=== PATIENT | female | born 1950 | race African-American/Black ===

== ENCOUNTER 2017-10-23 03:28 | Inpatient (IN) | payer OTHER, MEDICAID ==
[~2017-10-23] VITALS: Ht 160 cm; Wt 61.7 kg
[2017-10-23] VITALS (12 sets, daily range): BP systolic 103–133; BP diastolic 51–74
[2017-10-23] MEDS ORDERED: METHYLPREDNISOLONE SOD SUCC 125 MG/2 ML VIAL IV STA (03:33)
[2017-10-23] MEDS ORDERED: LEVOFLOXACIN 500MG PREMIX 100 ML IV ONE (03:45)
[2017-10-23] MEDS ORDERED: MAGNESIUM 2 G PREMIX 50 ML IV ONE (03:45)
[2017-10-23] MEDS ORDERED: IPRATROPIUM/ALBUTEROL 0.5-3(2.5)MG/3ML NEB HHN ONE (03:45)
[2017-10-23 04:09] LABS: HEMOGLOBIN. 8.7 g/dL (12.0-16.0); MEAN CORPUSCULAR HEMOGLOBIN 26.1 pg (28.0-32.0); MEAN CORPUSCULAR VOLUME 84.2 fL (81.0-99.0); MEAN PLATELET VOLUME 7.4 fl (7.4-10.4); PLATELET 737 x1000/uL (130-400); RED BLOOD CELL COUNT 3.33 mill/uL (4.2-5.4); RED CELL DISTRIBUTION WIDTH 16.6 % (11.6-14.6)
[2017-10-23 04:14] LABS: CHLORIDE 102 mEq/L (98-107)
[2017-10-23 04:15] LABS: INR 1.4; PARTIAL THROMBOPLASTIN TIME 32.7 sec (23.4-31.0); PROTHROMBIN TIME 14.1 sec (9.1-11.1)
[2017-10-23 04:18] LABS: ETHANOL BLOOD < 10 mg/dL
[2017-10-23 04:29] LABS: BG BASE EXCESS 4.5 mmol/L (-2.0-2.0); BG BILEVEL POS AIRWAY PRESSURE 15/5; BG CARBOXYHEMOGLOBIN 0.1 % (0.5-1.5); BG DEOXYHEMOGLOBIN 2.9 % (0.0-5.0); BG FRACTION INSPIRED OXYGEN 28; BG HCO3 ACT 30.1 mmol/L (22.0-26.0); BG METHEMOGLOBIN 0.5 % (0.0-1.5); BG OXYGEN SATURATION 97.1 % (92.0-98.5); BG OXYHEMOGLOBIN 96.5 % (94.0-97.0); BG PH 7.397 (7.350-7.450); BG PO2 101.3 mmHg (75.0-100.0); BG SAMPLE SITE RIGHT BRACHIAL; BG TOTAL HEMOGLOBIN 9.4 g/dL (12.0-18.0); BG VENT MODE MASK - BIPAP
[2017-10-23 05:32] LABS: NUCLEATED RED BLOOD CELLS 1 /100 WBC; PLATELET ESTIMATE INCREASED
[2017-10-23] MEDS ORDERED: IPRATROPIUM/ALBUTEROL 0.5-3(2.5)MG/3ML NEB INH PRN (07:30)
[2017-10-23] MEDS ORDERED: DOCUSATE SODIUM 100MG CAPSULE PO PRN (07:30)
[2017-10-23] MEDS ORDERED: ACETAMINOPHEN 325MG TABLET PO PRN (07:30)
[2017-10-23] MEDS ORDERED: NA PHOS,M-B/NA PHOS,DI-BA ENEMA 118ML PR PRN (07:30)
[2017-10-23] MEDS ORDERED: DIPHENHYDRAMINE 50MG/ML VIAL IV PRN (07:30)
[2017-10-23] MEDS ORDERED: GUAIFENESIN 200MG/10ML SUGAR FREE UDC PO PRN (07:30)
[2017-10-23] MEDS ORDERED: MAGNESIUM/ALUMINUM HYDROXIDE/SIMETHICONE 30ML UDC PO PRN (07:30)
[2017-10-23] MEDS ORDERED: TRAMADOL 50MG TABLET PO PRN (07:30)
[2017-10-23] MEDS ORDERED: ONDANSETRON HCL 4MG/2ML VIAL IV PRN (07:30)
[2017-10-23] MEDS ORDERED: CLONIDINE 0.1MG TABLET PO PRN (07:30)
[2017-10-23] MEDS ORDERED: NITROGLYCERIN 0.4MG TABLET SL SL PRN (07:30)
[2017-10-23] MEDS ORDERED: LORAZEPAM 0.5MG TABLET PO PRN (07:30)
[2017-10-23] MEDS ORDERED: ENOXAPARIN 40MG/0.4ML SYR SUBCUT SCH (09:00)
[2017-10-23] MEDS ORDERED: MULT-1146 MT (09:19)
[2017-10-23] MEDS ORDERED: DILT180C93 MT (09:19)
[2017-10-23] MEDS ORDERED: AZOPT EACHEYE (09:19)
[2017-10-23] MEDS ORDERED: TIOT18CA3 INH (09:19)
[2017-10-23] MEDS ORDERED: CALC-900 MT (09:19)
[2017-10-23] MEDS ORDERED: P20 MT (09:19)
[2017-10-23] MEDS ORDERED: LATA2.5D2 EACHEYE (09:19)
[2017-10-23] MEDS ORDERED: ATOR40TA70 MT (09:19)
[2017-10-23] MEDS ORDERED: FERR325T6 MT (09:19)
[2017-10-23] MEDS ORDERED: ASCO-316 PO (09:19)
[2017-10-23] MEDS ORDERED: ASPI-1159 MT (09:19)
[2017-10-23] MEDS ORDERED: PANT40TA4 MT (09:19)
[2017-10-23] MEDS ORDERED: THE3 MT (09:19)
[2017-10-23] MEDS ORDERED: RIVA20TA MT (09:25)
[2017-10-23] MEDS: ASPIRIN 325MG EC TABLET PO SCH (10:40)
[2017-10-23] MEDS: GUAIFENESIN/DM 600MG/30MG ER TAB 12HR PO SCH ×2 (10:41→20:21)
[2017-10-23] MEDS: ZINC SULFATE 220 MG ( 50 ) CAPSULE PO SCH (10:41)
[2017-10-23] MEDS: FAMOTIDINE 20MG TABLET PO SCH ×2 (10:43→20:21)
[2017-10-23] MEDS: IPRATROPIUM/ALBUTEROL 0.5-3(2.5)MG/3ML NEB HHN SCH ×2 (10:51→17:24)
[2017-10-23] MEDS: DILTIAZEM HCL 60MG TABLET PO SCH ×3 (11:54→23:20)
[2017-10-23] MEDS: ASCORBIC ACID 500 MG TABLET PO SCH ×2 (11:55→20:21)
[2017-10-23] MEDS ORDERED: BENZONATATE 100MG CAPSULE PO PRN (12:30)
[2017-10-23] MEDS ORDERED: PHENOL/SODIUM PHENOLATE 1.4% SRPAY 177ML MM PRN (12:30)
[2017-10-23] MEDS ORDERED: GUAIFENESIN/CODEINE 100-10MG/5ML UDC PO PRN (12:30)
[2017-10-23] MEDS: FLUTICASONE PROPIONATE 50MCG/SPRAY BOTTLE BOTHNSTRLS SCH ×2 (14:10→20:22)
[2017-10-23] MEDS: METHYLPREDNISOLONE SOD SUCC 125 MG/2 ML VIAL IV SCH ×2 (14:11→22:00)
[2017-10-23] MEDS: DORZOLAMIDE 2% OPHTH 10 ML BOTTLE BOTHEYE SCH ×2 (14:11→20:21)
[2017-10-23 14:50] LABS: CREATINE KINASE 124 IU/L (26-192)
[2017-10-23 14:51] LABS: CREATINE KINASE MB FRACTION 4.2 ng/mL (0.5-3.6)
[2017-10-23] MEDS ORDERED: MEDICATION NOT ON FORMULARY EA (Brinzolamide (Azopt) 1 DROP) EACHEYE SCH (17:00)
[2017-10-23 17:02] LABS: COLOR URINE YELLOW (YELLOW); KETONES URINE 2+ (NEGATIVE); LEUKOCYTE ESTERASE URINE NEGATIVE (NEGATIVE); NITRITE URINE NEGATIVE (NEGATIVE); OCCULT BLOOD URINE NEGATIVE (NEGATIVE); PH URINE 5.5 (4.5-8.0); PROTEIN URINE 1+ (NEGATIVE); UROBILINOGEN URINE 0.2 E.U./dL (0.2-1.0)
[2017-10-23 17:10] LABS: CLARITY URINE HAZY (CLEAR)
[2017-10-23 18:06] LABS: *AMPHETAMINES SCREEN URINE NEGATIVE (NEGATIVE)
[2017-10-23 18:08] LABS: *BARBITURATES SCREEN URINE NEGATIVE (NEGATIVE); *BENZODIAZEPINES SCREEN URINE NEGATIVE (NEGATIVE)
[2017-10-23 18:09] LABS: *COCAINE SCREEN URINE NEGATIVE (NEGATIVE); METHADONE URINE SCREEN NEGATIVE (NEGATIVE); OPIATES URINE SCREEN PRESUMTIVE POSITIVE (NEGATIVE)
[2017-10-23 18:10] LABS: CANNABINOID URINE SCREEN NEGATIVE (NEGATIVE); PHENCYCLIDINE URINE SCREEN NEGATIVE (NEGATIVE)
[2017-10-23] MEDS: RIVAROXABAN 20 MG TABLET PO SCH (18:12)
[2017-10-23] MEDS: GUAIFENESIN 600MG ER TABLET PO SCH (20:21)
[2017-10-23] MEDS: LATANOPROST 0.005% OPHTH DROPS 2.5ML EACHEYE SCH (20:22)
[2017-10-23] MEDS ORDERED: ZOLPIDEM TARTRATE 5MG TABLET PO PRN (21:00)
[2017-10-23] MEDS ORDERED: MEDICATION NOT ON FORMULARY EA (Rivaroxaban (Xarelto) 1 TAB) MT SCH (21:00)
[2017-10-24] VITALS (15 sets, daily range): BP systolic 94–139; BP diastolic 6–87
[2017-10-24] MEDS: IPRATROPIUM/ALBUTEROL 0.5-3(2.5)MG/3ML NEB HHN SCH ×6 (00:35→20:25)
[2017-10-24 00:43] LABS: CREATINE KINASE 114 IU/L (26-192)
[2017-10-24 00:45] LABS: CREATINE KINASE MB FRACTION 3.2 ng/mL (0.5-3.6)
[2017-10-24] MEDS ORDERED: LEVOFLOXACIN 500MG PREMIX 100 ML IV SCH (05:00)
[2017-10-24] MEDS: METHYLPREDNISOLONE SOD SUCC 125 MG/2 ML VIAL IV SCH (05:46)
[2017-10-24] MEDS: DILTIAZEM HCL 60MG TABLET PO SCH ×4 (05:46→22:30)
[2017-10-24] MEDS: ASCORBIC ACID 500 MG TABLET PO SCH ×2 (09:19→22:31)
[2017-10-24] MEDS: DORZOLAMIDE 2% OPHTH 10 ML BOTTLE BOTHEYE SCH ×2 (09:19→16:06)
[2017-10-24] MEDS: FLUTICASONE PROPIONATE 50MCG/SPRAY BOTTLE BOTHNSTRLS SCH ×2 (09:19→22:29)
[2017-10-24] MEDS: GUAIFENESIN/DM 600MG/30MG ER TAB 12HR PO SCH (09:19)
[2017-10-24] MEDS: ZINC SULFATE 220 MG ( 50 ) CAPSULE PO SCH (09:19)
[2017-10-24] MEDS: GUAIFENESIN 600MG ER TABLET PO SCH (09:19)
[2017-10-24] MEDS: FAMOTIDINE 20MG TABLET PO SCH (09:19)
[2017-10-24] MEDS: ASPIRIN 325MG EC TABLET PO SCH (09:26)
[2017-10-24] MEDS ORDERED: IOHEXOL-350 100 ML BOTTLE ONE (09:30)
[2017-10-24] MEDS: DOCUSATE SODIUM 100MG CAPSULE PO SCH (13:29)
[2017-10-24] MEDS: METHYLPREDNISOLONE SOD SUCC 40 MG/ML VIAL IV SCH ×2 (14:28→22:29)
[2017-10-24] MEDS: RIVAROXABAN 20 MG TABLET PO SCH (16:06)
[2017-10-24] MEDS: BUDESONIDE 0.5MG/2ML NEB HHN SCH (20:25)
[2017-10-24] MEDS: LATANOPROST 0.005% OPHTH DROPS 2.5ML EACHEYE SCH (22:30)
[2017-10-25] VITALS (12 sets, daily range): BP systolic 99–135; BP diastolic 47–98
[2017-10-25] MEDS: IPRATROPIUM/ALBUTEROL 0.5-3(2.5)MG/3ML NEB HHN SCH ×6 (00:39→20:46)
[2017-10-25] MEDS: DILTIAZEM HCL 60MG TABLET PO SCH ×4 (03:13→21:27)
[2017-10-25] MEDS: LEVOFLOXACIN 500MG PREMIX 100 ML IV SCH (05:42)
[2017-10-25] MEDS: METHYLPREDNISOLONE SOD SUCC 40 MG/ML VIAL IV SCH ×2 (08:16→16:50)
[2017-10-25] MEDS: ASPIRIN 325MG EC TABLET PO SCH (08:17)
[2017-10-25] MEDS: ASCORBIC ACID 500 MG TABLET PO SCH ×2 (08:17→21:27)
[2017-10-25] MEDS: DOCUSATE SODIUM 100MG CAPSULE PO SCH (08:17)
[2017-10-25] MEDS: FAMOTIDINE 20MG TABLET PO SCH (08:17)
[2017-10-25] MEDS: ZINC SULFATE 220 MG ( 50 ) CAPSULE PO SCH (08:17)
[2017-10-25] MEDS: FLUTICASONE PROPIONATE 50MCG/SPRAY BOTTLE BOTHNSTRLS SCH ×2 (08:20→21:27)
[2017-10-25] MEDS: DORZOLAMIDE 2% OPHTH 10 ML BOTTLE BOTHEYE SCH ×2 (08:20→16:51)
[2017-10-25] MEDS: BUDESONIDE 0.5MG/2ML NEB HHN SCH ×2 (08:50→20:46)
[2017-10-25] MEDS: RIVAROXABAN 20 MG TABLET PO SCH (16:51)
[2017-10-25 16:57] LABS: CHLORIDE 101 mEq/L (98-107)
[2017-10-25] MEDS: LATANOPROST 0.005% OPHTH DROPS 2.5ML EACHEYE SCH (21:28)
[2017-10-26] VITALS (12 sets, daily range): BP systolic 112–138; BP diastolic 58–89
[2017-10-26] MEDS: ACETYLCYSTEINE 100MG/ML 10% VIAL 4ML INH SCH ×3 (00:46→15:33)
[2017-10-26] MEDS: IPRATROPIUM/ALBUTEROL 0.5-3(2.5)MG/3ML NEB HHN SCH ×6 (00:47→20:40)
[2017-10-26] MEDS: METHYLPREDNISOLONE SOD SUCC 40 MG/ML VIAL IV SCH ×3 (00:53→17:04)
[2017-10-26] MEDS: DILTIAZEM HCL 60MG TABLET PO SCH ×4 (01:27→20:17)
[2017-10-26] MEDS: LEVOFLOXACIN 500MG PREMIX 100 ML IV SCH (04:25)
[2017-10-26] MEDS: ZINC SULFATE 220 MG ( 50 ) CAPSULE PO SCH (08:20)
[2017-10-26] MEDS: ASPIRIN 325MG EC TABLET PO SCH (08:20)
[2017-10-26] MEDS: FAMOTIDINE 20MG TABLET PO SCH (08:20)
[2017-10-26] MEDS: ASCORBIC ACID 500 MG TABLET PO SCH ×2 (08:20→20:15)
[2017-10-26] MEDS: DOCUSATE SODIUM 100MG CAPSULE PO SCH (08:20)
[2017-10-26] MEDS: FLUTICASONE PROPIONATE 50MCG/SPRAY BOTTLE BOTHNSTRLS SCH (08:21)
[2017-10-26] MEDS: DORZOLAMIDE 2% OPHTH 10 ML BOTTLE BOTHEYE SCH ×2 (08:22→17:04)
[2017-10-26] MEDS ORDERED: BISACODYL 5MG TABLET PO PRN (13:00)
[2017-10-26] MEDS: RIVAROXABAN 20 MG TABLET PO SCH (17:04)
[2017-10-26] MEDS: LATANOPROST 0.005% OPHTH DROPS 2.5ML EACHEYE SCH (20:18)
[2017-10-26] MEDS: BUDESONIDE 0.5MG/2ML NEB HHN SCH (20:39)
[2017-10-27] VITALS (10 sets, daily range): BP systolic 117–144; BP diastolic 62–84
[2017-10-27] MEDS: IPRATROPIUM/ALBUTEROL 0.5-3(2.5)MG/3ML NEB HHN SCH ×6 (00:37→21:27)
[2017-10-27] MEDS: DILTIAZEM HCL 60MG TABLET PO SCH ×4 (01:57→20:21)
[2017-10-27] MEDS: LEVOFLOXACIN 500MG PREMIX 100 ML IV SCH (04:51)
[2017-10-27] MEDS: METHYLPREDNISOLONE SOD SUCC 40 MG/ML VIAL IV SCH ×2 (05:08→17:25)
[2017-10-27] MEDS: BUDESONIDE 0.5MG/2ML NEB HHN SCH (08:09)
[2017-10-27] MEDS: FAMOTIDINE 20MG TABLET PO SCH (08:53)
[2017-10-27] MEDS: ASCORBIC ACID 500 MG TABLET PO SCH ×2 (08:53→20:21)
[2017-10-27] MEDS: ASPIRIN 325MG EC TABLET PO SCH (08:53)
[2017-10-27] MEDS: DOCUSATE SODIUM 100MG CAPSULE PO SCH (08:53)
[2017-10-27] MEDS: DORZOLAMIDE 2% OPHTH 10 ML BOTTLE BOTHEYE SCH ×2 (08:53→17:25)
[2017-10-27] MEDS: ZINC SULFATE 220 MG ( 50 ) CAPSULE PO SCH (08:57)
[2017-10-27] MEDS: RIVAROXABAN 20 MG TABLET PO SCH (17:25)
[2017-10-27] MEDS: LATANOPROST 0.005% OPHTH DROPS 2.5ML EACHEYE SCH (20:22)
[2017-10-28] VITALS: BP 131/72
[2017-10-28] MEDS: IPRATROPIUM/ALBUTEROL 0.5-3(2.5)MG/3ML NEB HHN SCH ×6 (00:47→20:58)
[2017-10-28] MEDS: DILTIAZEM HCL 60MG TABLET PO SCH ×4 (01:46→22:15)
[2017-10-28 04:00] VITALS: BP 126/77
[2017-10-28] MEDS: METHYLPREDNISOLONE SOD SUCC 40 MG/ML VIAL IV SCH ×2 (06:10→17:40)
[2017-10-28] MEDS: LEVOFLOXACIN 500MG PREMIX 100 ML IV SCH (06:10)
[2017-10-28 08:00] VITALS: BP 126/67
[2017-10-28] MEDS: ASCORBIC ACID 500 MG TABLET PO SCH ×2 (08:39→22:16)
[2017-10-28] MEDS: FAMOTIDINE 20MG TABLET PO SCH (08:39)
[2017-10-28] MEDS: DOCUSATE SODIUM 100MG CAPSULE PO SCH (08:39)
[2017-10-28] MEDS: ZINC SULFATE 220 MG ( 50 ) CAPSULE PO SCH (08:39)
[2017-10-28] MEDS: DORZOLAMIDE 2% OPHTH 10 ML BOTTLE BOTHEYE SCH ×2 (08:40→17:56)
[2017-10-28] MEDS: ASPIRIN 325MG EC TABLET PO SCH (08:40)
[2017-10-28 12:00] VITALS: BP 116/58
[2017-10-28 16:00] VITALS: BP 126/62
[2017-10-28] MEDS: RIVAROXABAN 20 MG TABLET PO SCH (17:56)
[2017-10-28 20:13] VITALS: BP 119/81
[2017-10-28] MEDS: LATANOPROST 0.005% OPHTH DROPS 2.5ML EACHEYE SCH (22:16)
[2017-10-29 00:08] VITALS: BP 108/49
[2017-10-29] MEDS: IPRATROPIUM/ALBUTEROL 0.5-3(2.5)MG/3ML NEB HHN SCH ×6 (01:02→20:05)
[2017-10-29] MEDS: DILTIAZEM HCL 60MG TABLET PO SCH ×4 (02:00→21:11)
[2017-10-29 04:00] VITALS: BP 136/60
[2017-10-29] MEDS: LEVOFLOXACIN 500MG PREMIX 100 ML IV SCH (05:47)
[2017-10-29] MEDS: METHYLPREDNISOLONE SOD SUCC 40 MG/ML VIAL IV SCH ×2 (05:47→17:48)
[2017-10-29 07:59] VITALS: BP 126/80
[2017-10-29] MEDS: ZINC SULFATE 220 MG ( 50 ) CAPSULE PO SCH (08:32)
[2017-10-29] MEDS: DORZOLAMIDE 2% OPHTH 10 ML BOTTLE BOTHEYE SCH ×2 (08:32→17:48)
[2017-10-29] MEDS: ASCORBIC ACID 500 MG TABLET PO SCH ×2 (08:32→21:11)
[2017-10-29] MEDS: DOCUSATE SODIUM 100MG CAPSULE PO SCH (08:32)
[2017-10-29] MEDS: ASPIRIN 325MG EC TABLET PO SCH (08:32)
[2017-10-29] MEDS: FAMOTIDINE 20MG TABLET PO SCH (08:33)
[2017-10-29 12:01] VITALS: BP 119/58
[2017-10-29 16:00] VITALS: BP 132/66
[2017-10-29] MEDS: RIVAROXABAN 20 MG TABLET PO SCH (17:48)
[2017-10-29 20:00] VITALS: BP 134/63
[2017-10-29] MEDS: LATANOPROST 0.005% OPHTH DROPS 2.5ML EACHEYE SCH (21:11)
[2017-10-30] VITALS (7 sets, daily range): BP systolic 115–129; BP diastolic 53–71
[2017-10-30] MEDS: IPRATROPIUM/ALBUTEROL 0.5-3(2.5)MG/3ML NEB HHN SCH ×6 (00:29→20:47)
[2017-10-30] MEDS: DILTIAZEM HCL 60MG TABLET PO SCH ×3 (02:31→13:43)
[2017-10-30] MEDS: METHYLPREDNISOLONE SOD SUCC 40 MG/ML VIAL IV SCH (05:18)
[2017-10-30] MEDS: LEVOFLOXACIN 500MG PREMIX 100 ML IV SCH (05:18)
[2017-10-30] MEDS: FAMOTIDINE 20MG TABLET PO SCH (09:00)
[2017-10-30] MEDS: ZINC SULFATE 220 MG ( 50 ) CAPSULE PO SCH (09:00)
[2017-10-30] MEDS: DOCUSATE SODIUM 100MG CAPSULE PO SCH (09:00)
[2017-10-30] MEDS: ASCORBIC ACID 500 MG TABLET PO SCH (09:01)
[2017-10-30] MEDS: DORZOLAMIDE 2% OPHTH 10 ML BOTTLE BOTHEYE SCH ×2 (09:01→17:50)
[2017-10-30] MEDS: ASPIRIN 325MG EC TABLET PO SCH (09:01)
[2017-10-30] MEDS ORDERED: BUDESONIDE 0.5MG/2ML NEB HHN SCH (16:00)
[2017-10-30] MEDS: RIVAROXABAN 20 MG TABLET PO SCH (17:50)
[2017-10-31] MEDS ORDERED: PREDNISONE 20MG TABLET PO SCH (09:00)
== END 2017-10-30 21:45 | DRG 189 ==
LOC: ER 03:39 → 5EST 04:58 → EDBEDREQSVC 05:28 → EDBEDREQ 05:28 → EDBEDREQTM 05:28 → ENRESERV 07:22 → SUPCPDRO 07:25 → 7WST 10-27 15:28
PROVIDERS: ADMIT Internal Medicine; ATTEND Internal Medicine
PROC: 5A09357 Assistance with Respiratory Ventilation, Less than 24 Consecutive Hours, Continuous Positive Airway Pressure (ICD-10-PCS; principal; 2017-10-23)
PROC: 5A09357 Assistance with Respiratory Ventilation, Less than 24 Consecutive Hours, Continuous Positive Airway Pressure (ICD-10-PCS; 2017-10-25)
PROC: 5A09357 Assistance with Respiratory Ventilation, Less than 24 Consecutive Hours, Continuous Positive Airway Pressure (ICD-10-PCS; 2017-10-26)
PROC: 5A09357 Assistance with Respiratory Ventilation, Less than 24 Consecutive Hours, Continuous Positive Airway Pressure (ICD-10-PCS; 2017-10-27)
PROC: 5A09357 Assistance with Respiratory Ventilation, Less than 24 Consecutive Hours, Continuous Positive Airway Pressure (ICD-10-PCS; 2017-10-29)
PROC: 5A09357 Assistance with Respiratory Ventilation, Less than 24 Consecutive Hours, Continuous Positive Airway Pressure (ICD-10-PCS; 2017-10-30)
DX: J96.00 Acute respiratory failure, unspecified whether with hypoxia or hypercapnia (principal); J44.1 Chronic obstructive pulmonary disease with (acute) exacerbation; E44.0 Moderate protein-calorie malnutrition; D68.59 Other primary thrombophilia; J04.0 Acute laryngitis; G47.33 Obstructive sleep apnea (adult) (pediatric); Z99.81 Dependence on supplemental oxygen; Z68.24 Body mass index [BMI] 24.0-24.9, adult; E87.6 Hypokalemia; E78.5 Hyperlipidemia, unspecified; Z60.2 Problems related to living alone; E78.00 Pure hypercholesterolemia, unspecified; K59.00 Constipation, unspecified; K46.9 Unspecified abdominal hernia without obstruction or gangrene; K43.9 Ventral hernia without obstruction or gangrene; I10 Essential (primary) hypertension; Z82.49 Family history of ischemic heart disease and other diseases of the circulatory system; Z93.3 Colostomy status; Z85.038 Personal history of other malignant neoplasm of large intestine; Z88.0 Allergy status to penicillin; Z79.899 Other long term (current) drug therapy; Z86.718 Personal history of other venous thrombosis and embolism; Z87.891 Personal history of nicotine dependence; D63.8 Anemia in other chronic diseases classified elsewhere
CPT/HCPCS: 36415; 36600; 71045; 71275; 80048; 80053; 80061; 80305; 81003; 82375; 82550; 82553; 82805; 83036; 83605; 83880; 84484; 85025; 85610; 85730; 87040; 87086; 93005; 93306; 93970; 94640; 94660; 96365; 96366; 96367; 97110; 97162; 97530; 99291; G0482; J1956; J2920; J2930; J3475; J7050; J7608; J7620; J7626; Q9967